=== PATIENT | female | born 1975 | race Two or more races ===

== ENCOUNTER 2016-12-30 02:12 | Emergency (ER) | payer SELFPAY ==
--- NOTE | 2016-12-30 02:58 | ED Physician Chart ---
Chief Complaint/HPI - Patient Information Date Seen:: 12/30/16 Time Seen:: 02:53 Chief Complaint:: toothache History of Present Illness:: pt has appt to see dentist this tuesday. Has been having pain at tooth and its become worse tonight. no fever. no uri sx. pt has been using motrin frequently wo relief. no trouble w breathing or swallowing. no yasmeen pmh. nkda. no meds,. denies any recent other meds or pain med rxs/ Allergies:: Allergies Allergy/AdvReac Type Severity Reaction Status Date / Time No Known Allergies Allergy Verified 12/30/16 02:30 Vitals:: Vital Signs - 8 hr 12/30/16 02:20 Temp 97.9 F HR 76 RR 18 BP 128/90 O2 Sat % 98 Historian:: Patient, Family Member () Review of Systems - Review of Systems General/Constitutional: No fever, No chills, No weight loss, No weakness, No diaphoresis, No edema, No loss of appetite Skin: No skin lesions, No rash, No bruising Head: No headache, No light-headedness Eyes: No loss of vision, No pain, No diplopia ENT: No earache, No nasal drainage, No sore throat, No tinnitus, Other ( toothache) Neck: No neck pain, No swelling, No thyromegaly, No stiffness, No mass noted Cardio Vascular: No chest pain, No palpitations, No PND, No orthopnea, No edema Pulmonary: No SOB, No cough, No sputum, No wheezing GI: No nausea, No vomiting, No diarrhea, No pain, No melena, No hematochezia, No constipation, No hematemesis G/U: No dysuria, No frequency, No hematuria Musculoskeletal: No bone or joint pain, No back pain, No muscle pain Endocrine: No polyuria, No polydipsia Psychiatric: No prior psych history, No depression, No anxiety, No suicidal ideation Hematopoietic: No bruising, No lymphadenopathy Allergic/Immuno: No urticaria, No angioedema Neurological: No syncope, No focal symptoms, No weakness, No paresthesia, No headache, No seizure, No dizziness, No confusion, No vertigo Past Medical History - Past Medical History Past Medical History: No significant medical hx Social History: Non Smoker, No Alcohol Medication: Reviewed Family Medical History - Family Member Mother History Unknown: Yes Ethnicity: Physical Exam - Physical Examination General/Constitutional: Awake, Well-developed, well-nourished, Alert, No distress, GCS 15, Non-toxic appearing, Ambulatory Head: Atraumatic Eyes: Lids, conjuctiva normal, PERRL, EOMI Skin: Nl inspection, No rash, No skin lesions, No ecchymosis, Well hydrated, No lymphadenopathy ENMT: External ears, nose nl, Nasal exam nl, Lips, teeth, gums nl, Oropharynx nl , Tonsils nl Other ENMT comments:: pt points to rt lower 1st premolar and says thats where pain is. there is no abnormality and no gum edema or abscess. teeth in general are full of prior dental work (however this one isnt) no trismus. nrml pharynx. no stridor. Neck: Nontender, Full ROM w/o pain, No JVD, No nuchal rigidity, No bruit, No mass, No stridor Respiratory: Nl effort/Exclusion, Clear to Auscultation, No Wheeze/Rhonchi/Rales Cardio Vascular: RRR, No murmur, gallop, rubs, NL S1 S2 GI: No tenderness/rebounding/guarding, No organomegaly, No hernia, Normal BS's, Nondistended, No mass/bruits, No McBurney tenderness : No CVA tenderness Extremities: No tenderness or effusion, Full ROM, normal strength in all extremities, No edema, Normal digits & nails Neuro/Psych: Alert/oriented, DTR's symmetric, Normal sensory exam, Normal motor strength, Judgement/insight normal, Mood normal, Normal gait, No focal deficits Misc: normal gait, Normal back, No paraspinal tenderness ED Septic Shock - . Is Septic Shock (SBP<90, OR Lactate>4 mmol\L) present?: No - <6hrs of presentation: Vital Signs: Vital Signs - 8 hr 12/30/16 02:20 Temp 97.9 F HR 76 RR 18 BP 128/90 O2 Sat % 98 Reassessment (Disposition) - Reassessment Reassessment Condition:: Improved - Diagnosis Diagnosis:: toothache - Aftercare/Follow up Instructions Aftercare/Follow-Up Instructions:: Counseled pt regarding lab results/diagnosis & need follow up Medication Prescribed:: pcn v and norco no15 - Patient Disposition Discharge/Transfer:: Home Condition at Disposition:: Improved ED Discharge Plan - Patient Disposition Instructions: Dental Pain, Toothache-Brief Additional Instructions: FOLLOW UP WITH A DENTIST [facility]. FILL YOUR PRESCRIPTION AND TAKE IT DIRECTED. FOLLOW UP WITH YOUR REGULAR DOCTOR OR MEDICAL CLINIC FOR ANY OTHER GUALBERTO NEEDS.
[2016-12-30] MEDS ORDERED: Hydrocodone/APAP 10 mg/325 mg Tab PO STA (03:01)
[2016-12-30] MEDS ORDERED: Hydrocodone/APAP 10 mg/325 mg Tab ONE (03:04)
== END 2016-12-30 03:20 | disposition home or self-care (01) ==
LOC: ER 02:12
DX: K08.9 Disorder of teeth and supporting structures, unspecified (principal)
CPT/HCPCS: Z7502